=== PATIENT | female | born 1940 | race Caucasian/White ===

== ENCOUNTER 2018-02-27 20:35 | Inpatient (IN) | payer OTHER ==
[~2018-02-27] VITALS: Ht 165.1 cm; Wt 75.7 kg
[~2018-02-27 20:35] MED LIST: DIO160; GLU500 PO; MIC8; OSCD; TEN50
[2018-02-27 21:18] LABS: BASOPHIL % 0.6 % (0-2); PLATELET COUNT 142 x10^3mcL (130-400); RED CELL DISTRIBUTION WIDTH 13.8 % (11.5-14.5)
[2018-02-27 21:21] LABS: CALCIUM 10.7 mg/dL (8.5-10.1); CARBON DIOXIDE 26.8 mmol/L (21-32); CHLORIDE SERUM 105 mmol/L (98-107); CREATININE SERUM 0.6 mg/dL (0.6-1.0); GLUCOSE SERUM 136 mg/dL (74-106); POTASSIUM SERUM 3.4 mmol/L (3.5-5.1); SODIUM SERUM 142 mmol/L (136-145)
[2018-02-27 21:25] LABS: ALKALINE PHOSPHATASE 96 U/L (46-116); ALT/SGPT 22 U/L (14-59); AST/SGOT 15 U/L (15-37); BILIRUBIN TOTAL 0.31 mg/dL (0.20-1.00); TOTAL PROTEIN, SERUM 7.9 g/dL (6.4-8.2)
[2018-02-27] MEDS ORDERED: PLA75 PO (22:25)
[2018-02-27] MEDS ORDERED: COZAAR25 M1 PO (22:30)
[2018-02-27] MEDS ORDERED: JANUVIA100 M1 PO (22:30)
[2018-02-27] MEDS ORDERED: CARVEDILOL3.125 M1 PO (22:31)
[2018-02-27 23:23] VITALS: BP 166/83
[2018-02-27 23:30] VITALS: Ht 165.1 cm; Wt 75.7 kg
[2018-02-27] MEDS ORDERED: SYNTHROID0.1 MG PO (23:43)
[2018-02-27] MEDS ORDERED: COLACE100 MG PO (23:45)
[2018-02-27] MEDS ORDERED: METOCLOPRAMIDE10 MG PO (23:45)
[2018-02-27] MEDS ORDERED: PRILOSEC OTC20 M1 PO (23:45)
[2018-02-27] MEDS ORDERED: LORAZEPAM1 MG PO (23:46)
[2018-02-27] MEDS ORDERED: CYANOCOBAL1000 MCG/M IM (23:46)
[2018-02-27] MEDS ORDERED: VENTOLIN H0.09 MG/A1 IH (23:46)
[2018-02-28 01:42] LABS: microscopic required? NO
[2018-02-28 02:07] LABS: urine erythrocyte NEGATIVE (NEGATIVE)
[2018-02-28 02:40] LABS: CHOLESTEROL/HDL RATIO 5.2; MAGNESIUM 1.9 mg/dL (1.8-2.4); PHOSPHOROUS 2.6 mg/dL (2.5-4.9)
[2018-02-28 05:49] VITALS: BP 150/72
[2018-02-28 06:45] LABS: BASOPHIL % 0.5 % (0-2); PLATELET COUNT 130 x10^3mcL (130-400); RED CELL DISTRIBUTION WIDTH 14.2 % (11.5-14.5)
[2018-02-28 07:36] LABS: CALCIUM 9.7 mg/dL (8.5-10.1); CARBON DIOXIDE 28.3 mmol/L (21-32); CHLORIDE SERUM 108 mmol/L (98-107); CREATININE SERUM 0.6 mg/dL (0.6-1.0); GLUCOSE SERUM 98 mg/dL (74-106); PHOSPHOROUS 2.6 mg/dL (2.5-4.9); POTASSIUM SERUM 3.8 mmol/L (3.5-5.1); SODIUM SERUM 142 mmol/L (136-145)
[2018-02-28 09:15] VITALS: BP 164/69
[2018-02-28 14:22] VITALS: BP 157/64
[2018-02-28 14:30] VITALS: BP 112/52
[2018-02-28 17:03] VITALS: BP 130/59
[2018-02-28 21:16] VITALS: BP 121/56
[2018-03-01 06:08] VITALS: BP 144/57
[2018-03-01 06:20] LABS: BASOPHIL % 0.5 % (0-2); RED CELL DISTRIBUTION WIDTH 13.5 % (11.5-14.5)
[2018-03-01 06:48] LABS: CALCIUM 9.5 mg/dL (8.5-10.1); CARBON DIOXIDE 24.2 mmol/L (21-32); CHLORIDE SERUM 107 mmol/L (98-107); CREATININE SERUM 0.7 mg/dL (0.6-1.0); GLUCOSE SERUM 109 mg/dL (74-106); PHOSPHOROUS 2.8 mg/dL (2.5-4.9); POTASSIUM SERUM 3.6 mmol/L (3.5-5.1); SODIUM SERUM 141 mmol/L (136-145)
[2018-03-01 07:00] LABS: PLATELET COUNT 119 x10^3mcL (130-400)
[2018-03-01 09:49] VITALS: BP 134/51
[2018-03-01] MEDS ORDERED: ELIQUIS5 MG PO (12:14)
[2018-03-01 12:52] VITALS: BP 133/56
[2018-03-01 14:49] VITALS: BP 133/56
== END 2018-03-01 15:17 | disposition home or self-care (01) | DRG 309 ==
LOC: ED 20:35 → DU 22:32
PROVIDERS: Emergency Medicine; Internal Medicine
DX: I48.91 Unspecified atrial fibrillation (principal); D68.59 Other primary thrombophilia; E11.65 Type 2 diabetes mellitus with hyperglycemia; I10 Essential (primary) hypertension; E03.9 Hypothyroidism, unspecified; K21.9 Gastro-esophageal reflux disease without esophagitis; I25.2 Old myocardial infarction; Z68.29 Body mass index [BMI] 29.0-29.9, adult; Z95.1 Presence of aortocoronary bypass graft; Z79.01 Long term (current) use of anticoagulants; Z95.5 Presence of coronary angioplasty implant and graft; Z79.84 Long term (current) use of oral hypoglycemic drugs
CPT/HCPCS: 82962; 83880; C9113; J2060; J3420; J8597; Q0092